=== PATIENT | female | born 1995 | race African-American/Black ===

== ENCOUNTER 2017-03-03 20:09 | Emergency (ER) | payer OTHER ==
[~2017-03-03] VITALS: Wt 51.0 kg
[~2017-03-03 20:09] MED LIST: ULTRAM 50MG TAB50 MG PO; ZOFRAN ODT4 MG PO
[2017-03-03] MEDS ORDERED: NORCO 5-325 TA1 EACH PO (20:31)
[2017-03-03 21:28] VITALS: BP 125/86
== END 2017-03-03 21:30 | disposition home or self-care (01) ==
LOC: EDBD 20:09 → ER 20:09
DX: T22.112A Burn of first degree of left forearm, initial encounter (principal); T23.191A Burn of first degree of multiple sites of right wrist and hand, initial encounter; X10.2XXA Contact with fats and cooking oils, initial encounter; Y93.G3 Activity, cooking and baking; Y92.89 Other specified places as the place of occurrence of the external cause; Y99.8 Other external cause status